=== PATIENT | female | born 1990 | race Caucasian/White ===

== ENCOUNTER 2019-03-06 13:50 | Outpatient (CLI) | payer OTHER | END 2019-03-06 13:51 | disposition home or self-care (01) | LOC: DTY/OP 13:50 | PROVIDERS: ATTEND Surgery | DX: E66.01 Morbid (severe) obesity due to excess calories (principal) | CPT/HCPCS: 97802 ==

== ENCOUNTER 2019-04-07 14:15 | Outpatient (CLI) | payer OTHER | END 2019-04-07 14:16 | disposition home or self-care (01) | LOC: DTY/OP 14:15 | PROVIDERS: ATTEND Surgery | DX: E66.01 Morbid (severe) obesity due to excess calories (principal) | CPT/HCPCS: 97802 ==

== ENCOUNTER 2019-05-04 10:48 | Outpatient (CLI) | payer OTHER | END 2019-05-04 10:49 | disposition home or self-care (01) | LOC: DTY/OP 10:48 | PROVIDERS: ATTEND Surgery | DX: E66.01 Morbid (severe) obesity due to excess calories (principal) | CPT/HCPCS: 97802 ==

== ENCOUNTER 2019-06-08 10:58 | Outpatient (CLI) | payer OTHER | END 2019-06-08 10:59 | disposition home or self-care (01) | LOC: DTY/OP 10:58 | PROVIDERS: ATTEND Surgery | DX: E66.01 Morbid (severe) obesity due to excess calories (principal) | CPT/HCPCS: 97802 ==

== ENCOUNTER 2019-06-22 06:40 | Outpatient (CLI) | payer OTHER ==
[2019-06-22 16:51] LABS: #Basophils 0.1 thou/uL (0.0-0.2); #Eosinphils 0.3 thou/uL (0.0-0.7); #Lymphocytes 3.7 thou/uL (1.20-3.40); #Monocytes 0.6 thou/uL (0.11-0.59); %Eosinophils 3.1 % (0.0-10.0); %Lymphocytes 34.4 % (21.0-51.0); %Monocytes 5.7 % (0.0-10.0); %Neutrophils 55.8 % (42.0-75.0); Hemoglobin 15.8 g/dL (12.0-16.0); Mean Corpuscular HGB CONC 34.4 g/dL (32.0-36.0); Mean Corpuscular Volume 87.1 fL (78.0-98.0); Mean Platelet Volume 8.8 fL (7.4-10.4); Platelet Count 259 thou/uL (130-400); RBC Distribution Width 11.8 % (11.5-14.5); Red Blood Cell (RBC) Count 5.28 mill/uL (4.20-5.40); White Blood Cell (WBC) Count 10.8 thou/uL (4.8-10.8)
[2019-06-22 16:58] LABS: BHCG - Serum Negative (NEGATIVE); Pregs Control Background? CLEAR/WHITE (CLR/WHITE); Pregs Control Bar Appear? YES (CONTROL BAR)
[2019-06-22 16:59] LABS: Hemoglobin A1c 5.5 % (4.0-6.0)
[2019-06-22 17:12] LABS: ALT (SGPT) 22 U/L (8-55); AST (SGOT) 19 U/L (5-34); Albumin 4.4 g/dL (3.5-5.0); Alkaline Phosphatase 80 U/L (40-110); Anion Gap 11 mmol/L (10-20); BUN (Urea Nitrogen) 11 mg/dL (7.0-18.7); Bilirubin, Total 0.6 mg/dL (0.2-1.2); Calc. Creatinine Clearance 0 mL/min (70-130); Calcium 9.5 mg/dL (7.8-10.44); Carbon Dioxide 25 mmol/L (22-29); Chloride 105 mmol/L (98-107); Estimated GFR-MDRD Greater than 90; Globulin 3.6 g/dL (2.4-3.5); Glucose 88 mg/dL (70-105); Potassium 3.5 mmol/L (3.5-5.1); Sodium 137 mmol/L (136-145)
--- NOTE | 2019-06-22 17:53 | RAD ---
Chest 2 views HISTORY: Preop. FINDINGS: Cardiac silhouette and pulmonary vasculature are unremarkable. Mediastinum is midline. No c onfluent airspace consolidation, pneumothorax, or pleural fluid. IMPRESSION: No active cardiopulmonary abnormalities are demonstrated.
--- NOTE | 2019-06-24 13:41 | EKG ---
Test Reason : Blood Pressure : / mmHG Vent. Rate : 065 BPM Atrial Rate : 065 BPM P-R Int : 154 ms QRS Dur : 092 ms QT Int : 422 ms P-R-T Axes : 048 033 048 degrees QTc Int : 438 ms Normal sinus rhythm with sinus arrhythmia Incomplete right bundle branch block Possible Anterior infarct , age undetermined Abnormal ECG Confirmed by SARAN ROBERTSON (2) on 06/24/2019 1:40:58 PM Referred By: LILY Confirmed By:SARAN ROBERTSON
== END 2019-06-22 06:41 | disposition home or self-care (01) ==
LOC: LABBT 06:40
PROVIDERS: ATTEND Surgery
DX: Z01.818 Encounter for other preprocedural examination (principal); E66.01 Morbid (severe) obesity due to excess calories
CPT/HCPCS: 71046; 80053; 83036; 84703; 85025; 93005; 93010

== ENCOUNTER 2019-06-22 16:15 | Inpatient (IN) | payer OTHER ==
[2019-06-22 16:47] VITALS: BMI 41.1
[2019-06-25] MEDS ORDERED: Lidocaine 1% w/Epinephrine 1:100K 20 ML VIAL ONE (08:58)
[2019-06-25] MEDS ORDERED: Bupivacaine 0.25% HCL 30 ML VIAL ONE (08:58)
[2019-06-25] MEDS ORDERED: Fentanyl 250 MCG/5 ML VIAL ONE (09:40)
[2019-06-25] MEDS ORDERED: Heparin 5,000 UNITS/ML VIAL ONE (09:41)
[2019-06-25] MEDS ORDERED: hydrALAZINE 20 MG/ML VIAL SLOW IVP PRN (10:55)
[2019-06-25] MEDS ORDERED: Dextrose 50% Abboject 50 ML SYRINGE SLOW IVP PRN (10:55)
[2019-06-25] MEDS ORDERED: diphenhydrAMINE 50 MG/ML VIAL IVP PRN ×2 (10:55→11:10)
[2019-06-25] MEDS ORDERED: Promethazine HCl 25 MG/ML VIAL IM PRN ×2 (10:55→11:10)
[2019-06-25] MEDS ORDERED: Hydrocodone-Acetamin 15 ML UDCUP PO PRN (10:55)
[2019-06-25] MEDS ORDERED: Ondansetron PF 4 MG/2 ML Vial IVP PRN (10:55)
[2019-06-25] MEDS ORDERED: Dextrose 5% in Water 1,000 ML IV PRN (10:55)
[2019-06-25] MEDS ORDERED: Naloxone HCl 0.4 mg/ml Vial IV PRN (11:10)
[2019-06-25] MEDS ORDERED: diphenhydrAMINE 50 MG/ML VIAL IM PRN (11:10)
[2019-06-25] MEDS ORDERED: diphenhydrAMINE 25 MG CAP PO PRN (11:10)
[2019-06-25] MEDS ORDERED: Zolpidem Tartrate 5 MG TAB PO PRN (11:10)
[2019-06-25] MEDS ORDERED: HYDROmorphone 10 mg/100 ml CADD IVPB PRN (11:10)
[2019-06-25] MEDS ORDERED: Communication Order-Pharmacy FS PRN (11:15)
[2019-06-25] MEDS ORDERED: Fentanyl 100 MCG/2 ML VIAL ONE (11:39)
[2019-06-25] MEDS ORDERED: Promethazine HCl 25 MG/ML VIAL ONE (12:13)
--- NOTE | 2019-06-25 13:20 | OP ---
DATE OF PROCEDURE: 06/25/2019 PREOPERATIVE DIAGNOSIS: Morbid obesity with body mass index of 42. POSTOPERATIVE DIAGNOSIS: Morbid obesity with body mass index of 42. PROCEDURE PERFORMED: Laparoscopic sleeve gastrectomy with [place] staple line reinforcements and 38-[place] bougie. ANESTHESIA: General. ESTIMATED BLOOD LOSS: Minimal. COMPLICATIONS: None. SPECIMEN: Stomach. FINDINGS: Normal postoperative ESOPHAGOGASTRODUODENOSCOPY DESCRIPTION OF PROCEDURE: The patient was taken to the operating room and laid supine on the operating room table. After general anesthetic was obtained, arms and legs were double strapped to bariatric table. OG tube was used to decompress the stomach. The abdomen was shaved, prepped, and draped in a sterile fashion. Left subcostal 5 mm Optiview trocar was placed in usual fashion. High-flow pneumoperitoneum was obtained. Right upper quadrant 5-mm port as well as two 12-mm abdominal ports were all placed under direct visualization. 5 mm incision made at the xiphoid and Osvaldo was used to raise the liver off the GE junction. The short gastrics were taken down from the mid body of the stomach to the left mane of diaphragm. The left mane, posterior fundus, and angle of His were completely dissected. There was no hiatal hernia. Short gastrics were taken down to a distance of 6 cm proximal to the pylorus. Multiple loads of an [place] stapling device were used to perform the sleeve. The bougie was passed under direct laparoscopic vision all the way to the pylorus. The first fire was fired at a distance of 6 cm proximal to the pylorus angled up towards the incisura. This was a green load. Care was taken to avoid being too close to the incisura. Multiple loads were then fired up along the bougie. Stomach was completely transected at the angle of His. Care was taken to avoid involvement of the GE junction. Stomach was removed from the left abdominal incision. This fascial defect was closed using GraNee needle and 0 Vicryl tie. All port sites were infiltrated using local anesthetic. There was no bleeding on the staple line. There was no bleeding in the abdomen. The bougie is removed. Then, EGD scope was passed through esophagus and stomach to the level of duodenum without obstruction. There was no stricture at the incisura. There was no involvement of the staple line with the GE junction. There was no air leakage through the staple line and there was no bleeding. EGD scope was used to decompress the stomach, it was pulled and removed. The Osvaldo retractor was removed under direct visualization without bleeding. All ports were removed under direct visualization without bleeding and pneumoperitoneum was let down. The Vicryl ties were used to close the fascial defect from the left abdominal incision. All other incisions and this one are irrigated and closed using 4-0 Monocryl and Dermabond. The patient was sent to Recovery in stable condition. All instrument counts, needle counts, and lap counts were correct. Job ID: [id number]
[2019-06-25] MEDS: D5 1/2 NS w/20 mEq KCL 1,000 ML IV SCH ×2 (14:02→19:42)
[2019-06-25] MEDS ORDERED: Ketorolac Tromethamine 30 MG/ML VIAL ONE (15:53)
[2019-06-25] MEDS ORDERED: Ondansetron PF 4 MG/2 ML Vial ONE (15:53)
[2019-06-25] MEDS ORDERED: Labetalol HCl 100 MG/20 ML VIAL ONE (15:53)
[2019-06-25] MEDS ORDERED: Glycopyrrolate 0.2 MG/ML 5 ML SYRINGE ONE (15:53)
[2019-06-25] MEDS ORDERED: Lidocaine 1% PF 5 ML VIAL ONE (15:53)
[2019-06-25] MEDS ORDERED: Dexamethasone 20 MG/5 ML VIAL ONE (15:53)
[2019-06-25] MEDS ORDERED: Rocuronium Bromide 10 MG/ML (10ML VIAL) ONE (15:53)
[2019-06-25] MEDS ORDERED: PROPOFOL 200 MG/20 ML VIAL ONE (15:53)
[2019-06-25] MEDS: Ondansetron PF 4 MG/2 ML Vial IVP PRN (15:58)
[2019-06-25] MEDS: Enoxaparin Sodium 40 MG/0.4 ML SYRINGE SC SCH (19:42)
[2019-06-26] MEDS: D5 1/2 NS w/20 mEq KCL 1,000 ML IV SCH ×3 (00:53→20:20)
[2019-06-26] MEDS: Ondansetron PF 4 MG/2 ML Vial IVP PRN ×3 (00:53→16:36)
[2019-06-26 05:06] LABS: #Basophils 0.1 thou/uL (0.0-0.2); #Lymphocytes 1.4 thou/uL (1.20-3.40); #Monocytes 0.8 thou/uL (0.11-0.59); #Neutrophils 8.7 thou/uL (1.40-6.50); %Monocytes 7.3 % (0.0-10.0); %Neutrophils 78.6 % (42.0-75.0); Hemoglobin 13.9 g/dL (12.0-16.0); Mean Corpuscular HGB CONC 33.5 g/dL (32.0-36.0); Mean Corpuscular Hemoglobin 29.6 pg (27.0-31.0); Mean Corpuscular Volume 88.3 fL (78.0-98.0); Mean Platelet Volume 8.5 fL (7.4-10.4); Platelet Count 220 thou/uL (130-400); RBC Distribution Width 11.6 % (11.5-14.5); Red Blood Cell (RBC) Count 4.71 mill/uL (4.20-5.40); White Blood Cell (WBC) Count 11.1 thou/uL (4.8-10.8)
[2019-06-26 05:24] LABS: Anion Gap 10 mmol/L (10-20); BUN (Urea Nitrogen) 6 mg/dL (7.0-18.7); Calc. Creatinine Clearance 219 mL/min (70-130); Calcium 8.6 mg/dL (7.8-10.44); Carbon Dioxide 24 mmol/L (22-29); Chloride 105 mmol/L (98-107); Estimated GFR-MDRD Greater than 90; Glucose 146 mg/dL (70-105); Potassium 4.2 mmol/L (3.5-5.1); Sodium 135 mmol/L (136-145)
[2019-06-26] MEDS: Pantoprazole 40 MG VIAL IVP SCH (09:14)
--- NOTE | 2019-06-26 15:34 | PRG ---
DATE OF SERVICE: 06/26/2019 SUBJECTIVE: Ms. Donte Vidales is still having persistent nausea. It is limiting her oral intake. OBJECTIVE: VITAL SIGNS: She is afebrile. Vital signs are stable. ABDOMEN: Soft. All wounds are healing well. EXTREMITIES: She is ambulatory. ASSESSMENT: Postoperative day #1, laparoscopic gastric sleeve. PLAN: Continue obs. Continue IV fluids. Suspect her nausea will be markedly improved tomorrow. Ready for discharge. Job ID: [id number]
[2019-06-26] MEDS: Enoxaparin Sodium 40 MG/0.4 ML SYRINGE SC SCH (20:20)
[2019-06-27] MEDS: D5 1/2 NS w/20 mEq KCL 1,000 ML IV SCH ×2 (00:48→11:25)
[2019-06-27] MEDS: Ondansetron PF 4 MG/2 ML Vial IVP PRN (00:48)
[2019-06-27] MEDS: Pantoprazole 40 MG VIAL IVP SCH (08:55)
--- NOTE | 2019-06-27 10:23 | PRG ---
DATE OF SERVICE: 06/27/2019 SUBJECTIVE: Ms. Donte Vidales is having persistent mild nausea. It has improved since yesterday. She is ambulatory. Her pain is improved. OBJECTIVE: On physical exam, her abdomen is soft and nontender. All incisions healing well. ASSESSMENT AND PLAN: Persistent mild nausea, status post gastric sleeve. If improved after lunch, she will be discharged to home. Job ID: [id number]
[2019-06-27 11:44] VITALS: BP 129/82; TEMP 98.1
== END 2019-06-27 12:20 | disposition home or self-care (01) | DRG 621 ==
LOC: SURG A 06-25 06:34 → SURG B 06-25 13:01
PROVIDERS: ADMIT Surgery; ATTEND Surgery
PROC: 0DB64Z3 Excision of Stomach, Percutaneous Endoscopic Approach, Vertical (ICD-10-PCS; principal; 2019-06-25)
PROC: 0DJ08ZZ Inspection of Upper Intestinal Tract, Via Natural or Artificial Opening Endoscopic (ICD-10-PCS; 2019-06-25)
DX: E66.01 Morbid (severe) obesity due to excess calories (principal); Z68.41 Body mass index [BMI] 40.0-44.9, adult; Z88.2 Allergy status to sulfonamides; Z88.8 Allergy status to other drugs, medicaments and biological substances; Z91.013 Allergy to seafood; Z91.041 Radiographic dye allergy status; M19.90 Unspecified osteoarthritis, unspecified site; R11.0 Nausea
CPT/HCPCS: 36415; 71046; 80048; 80053; 83036; 84703; 85025; 88307; 88312; 93005; C9113; J0690; J1100; J1644; J1650; J1885; J2001; J2405; J2550; J2704; J3010; S0020